=== PATIENT | female | born 1995 | race American Indian/Alaskan Native ===

== ENCOUNTER 2022-03-31 00:55 | Emergency (ER) | payer OTHER ==
[~2022-03-31] VITALS: Ht 152.4 cm; Wt 89.8 kg
[~2022-03-31 00:55] MED LIST: IBUPROFEN600 MG PO; MAPAP325 MG PO; OXYCODON-ACETA1 EAC2 PO; VITAMIN D400 UNI1 PO
[2022-03-31] MEDS ORDERED: CYCLOBENZAPRINE10 MG PO (02:28)
== END 2022-03-31 02:50 | disposition home or self-care (01) ==
LOC: ED 00:55
DX: B34.9 Viral infection, unspecified (principal); Z87.891 Personal history of nicotine dependence; Z20.822 Contact with and (suspected) exposure to COVID-19
CPT/HCPCS: 87502; 96372; 99284; C9803; J1885; U0003

== ENCOUNTER 2022-09-20 15:17 | Emergency (ER) | payer OTHER ==
[~2022-09-20] VITALS: Ht 152.4 cm; Wt 89.8 kg
[~2022-09-20 15:17] MED LIST changes: +CYCLOBENZAPRINE10 MG PO
== END 2022-09-20 17:29 | disposition home or self-care (01) ==
LOC: ED 15:17
DX: J06.9 Acute upper respiratory infection, unspecified (principal); Z20.822 Contact with and (suspected) exposure to COVID-19; Z87.891 Personal history of nicotine dependence
CPT/HCPCS: 87502; 99283; C9803; U0003